=== PATIENT | female | born 1995 | race Caucasian/White ===

== ENCOUNTER 2019-06-28 15:28 | Emergency (ER) | payer OTHER, BC ==
[2019-06-28] MEDS: LORAZEPAM 1 MG TAB PO (15:51)
[2019-06-28] MEDS ORDERED: LORAZEPAM 2 MG INJ IM (16:00)
== END 2019-06-28 17:09 | disposition home or self-care (01) ==
LOC: FTE 17:09
DX: R06.02 Shortness of breath (principal); F17.210 Nicotine dependence, cigarettes, uncomplicated
CPT/HCPCS: 99283; Z7502